=== PATIENT | female | born 1975 | race Caucasian/White ===

== ENCOUNTER 2018-09-24 09:10 | Emergency (ER) | payer OTHER ==
[2018-09-24 09:11] VITALS: BMI 29.8
--- NOTE | 2018-09-24 09:57 | C.PDOC ---
History Of Present Illness 42 y/o female presents to ED with c/o lip swelling intermittently for 3 weeks after eating. Patient states she had a negative home test but thinks she is because "feels movement in abdomen". Patient admits to headache, generalized weakness, nausea and palpitations, states she was seen by window glass installer 1 week ago and has a scheduled ECHO in 1 week and is undergoing Holter monitoring. Patient denies fever, chills, photophobia, recent travel or any other complaints at this time. Time Seen by Provider: 09/24/18 09:32 Chief Complaint (Nursing): Medical Clearance History Per: Patient History/Exam Limitations: no limitations Onset/Duration Of Symptoms: Days Current Symptoms Are (Timing): Still Present Past Medical History Reviewed: Historical Data, Nursing Documentation, Vital Signs Vital Signs: Last Vital Signs Temp 98.4 F 09/24/18 09:15 Pulse 109 H 09/24/18 09:15 Resp 18 09/24/18 09:15 BP 148/98 H 09/24/18 09:15 Pulse Ox 96 09/24/18 09:15 - Medical History PMH: HTN, Hyperlipidemia, Kidney Stones Surgical History: Cholecystectomy Family History: States: No Known Family Hx - Social History Hx Tobacco Use: No Hx Alcohol Use: No Hx Substance Use: No - Immunization History Hx Tetanus Toxoid Vaccination: No Hx Influenza Vaccination: No Hx Pneumococcal Vaccination: No Review Of Systems Except As Marked, All Systems Reviewed And Found Negative. Constitutional: Positive for: Weakness. Negative for: Fever, Chills Cardiovascular: Positive for: Palpitations. Negative for: Chest Pain Gastrointestinal: Positive for: Nausea. Negative for: Vomiting Neurological: Positive for: Headache Physical Exam - Physical Exam Additional Physical Exam Comments: Constitutional: No acute distress. Head: Normocephalic. Atraumatic. Eyes: PERRL. ENT: Moist mucous membranes. Neck: Supple. Cardiovascular: Tachycardic Radial pulse 2+ bilaterally. Chest: No tenderness. Respiratory: Clear to auscultation bilaterally. GI: Soft. Nontender. Nondistended. Back: No CVA tenderness. Musculoskeletal: No tenderness or swelling of extremities. Skin: No rash. Neurologic: Alert, no focal deficit. ED Course And Treatment - Laboratory Results Result Diagrams: 09/24/18 10:16 09/24/18 10:16 O2 Sat by Pulse Oximetry: 96 (RA) Pulse Ox Interpretation: Normal Medical Decision Making Medical Decision Making: Prior records reviewed: Patient had echo 1 year ago showed 65% EF, and Holter 1 year ago showed isolated episodes of sinus tachycardia 130s and no evidence of arrythmias. Plan: Blood work, UA ordered. [place]: On re evaluation patient developed edema to upper lip, denies eating and reports tingling to mouth area. Patient is in NAD, no sob noted. Benadryl IV administered. Labs unremarkable. Will discharge home, f/u PMD/Allergy, keep other appointments, return to ED for worsening breathing, pain, fever, vomiting, or any other problem. Disposition - Disposition Disposition: HOME/ ROUTINE Disposition Time: 11:39 Condition: STABLE Prescriptions: Ondansetron ODT [Zofran ODT] 4 mg PO Q8 #12 odt Instructions: Palpitations, Angioedema Forms: [facility] (N[place]ien) - Clinical Impression Clinical Impression: Lip swelling - Scribe Statement The provider has reviewed the documentation as recorded by the Kishor Manley All medical record entries made by the Dennyibpadmini were at my direction and personally dictated by me. I have reviewed the chart and agree that the record accurately reflects my personal performance of the history, physical exam, medical decision making, and the department course for this patient. I have also personally directed, reviewed, and agree with the discharge instructions and disposition.
[2018-09-24 10:28] LABS: BASO # 0.1 K/uL (0.0-0.2); BASO % 0.8 % (0.0-2.0); EOS # 0.2 K/uL (0.0-0.7); EOS % 2.5 % (0.0-4.0); LYMPH # 3.5 K/uL (1.0-4.3); LYMPH % 39.5 % (20.0-40.0); MEAN CELL VOLUME 89.5 fL (81.0-99.0); MEAN CORPUSCULAR HEMOGLOBIN 30.4 pg (27.0-31.0); MEAN CORPUSCULAR HGB CONC 33.9 g/dL (33.0-37.0); MEAN PLATELET VOLUME 8.9 fL (7.2-11.7); MONO # 0.5 K/uL (0.0-0.8); MONO % 5.2 % (0.0-10.0); NEUT # 4.6 K/uL (1.8-7.0); RBC 5.09 Mil/uL (3.80-5.20); RED CELL DISTRIBUTION WIDTH 12.8 % (11.5-14.5); WHITE BLOOD COUNT 8.8 K/uL (4.8-10.8)
[2018-09-24 10:31] LABS: HEMOGLOBIN 15.5 g/dL (11.0-16.0)
[2018-09-24 10:49] LABS: SQUAMOUS EPITHIAL 2 /hpf (0-5); URINE BACTERIA RARE (<OCC); URINE BILIRUBIN NEGATIVE (NEGATIVE); URINE BLOOD 1+ (NEGATIVE); URINE CALCIUM OXALATE CRYSTALS OCC /hpf (<OCC); URINE CLARITY Hazy (Clear); URINE COLOR Yellow (YELLOW); URINE GLUCOSE (UA) NORMAL (Normal); URINE HYALINE CAST 0-2 /lpf (0-2); URINE LEUKOCYTE ESTERASE NEG Leu/uL (Negative); URINE PROTEIN NEGATIVE (NEGATIVE); URINE UROBILINOGEN NORMAL mg/dL (0.2-1.0)
[2018-09-24] MEDS ORDERED: DiphenhydrAMINE 50 mg/ml Inj IVP STA (11:09)
[2018-09-24] MEDS ORDERED: DiphenhydrAMINE 50 mg/ml Inj ONE (11:15)
[2018-09-24 11:23] LABS: ALB/GLOB RATIO 1.1 (1.0-2.1); ALBUMIN 4.6 g/dL (3.5-5.0); ALT/SGPT 30 U/L (9-52); AST/SGOT 30 U/L (14-36); BLOOD UREA NITROGEN 16 mg/dL (7-17); CALCIUM 9.7 mg/dl (8.6-10.4); GFR NON-AFRICAN AMERICAN > 60; LIPASE 54 U/L (23-300)
[2018-09-24 12:15] VITALS: BP 135/88; PULSE 92; RESP 16; TEMP 98.3; O2SAT 98
== END 2018-09-24 12:14 | disposition home or self-care (01) ==
LOC: C.ER 09:10
DX: R22.0 Localized swelling, mass and lump, head (principal); I10 Essential (primary) hypertension; E78.5 Hyperlipidemia, unspecified; Z87.442 Personal history of urinary calculi
CPT/HCPCS: 80053; 81001; 83690; 84702; 85025; 87086; 96374; 99285; J1200